=== PATIENT | male | born 1965 | race Hispanic/Latino ===

== ENCOUNTER 2018-09-06 09:05 | Emergency (ER) | payer OTHER, BC ==
[2018-09-06] MEDS ORDERED: NORCO 5/325 PO ONE (10:17)
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
[2018-09-06 12:00] LABS: Alanine Aminotransferase 17 units/L (7-56); Albumin 4.4 g/dL (3.9-5); BUN/Creatinine Ratio 11; Blood Urea Nitrogen 9 mg/dL (9-20); Hemolysis Index 13
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
[2018-09-06] MEDS ORDERED: MORPHINE IV ONE (13:01)
[2018-09-06] MEDS ORDERED: ZOFRAN IV ONE (13:01)
[2018-09-06 14:15] VITALS: BP 132/79
== END 2018-09-06 14:00 | disposition home or self-care (01) ==
LOC: ED 09:05
DX: S20.219A Contusion of unspecified front wall of thorax, initial encounter (principal); S50.812A Abrasion of left forearm, initial encounter; Z79.899 Other long term (current) drug therapy; V43.52XA Car driver injured in collision with other type car in traffic accident, initial encounter; Y93.89 Activity, other specified; Y92.488 Other paved roadways as the place of occurrence of the external cause; Y99.8 Other external cause status
CPT/HCPCS: 36415; 71275; 80053; 96374; 96375; 99284; J2270; J2405; Q9967